=== PATIENT | female | born 1990 | race Caucasian/White ===

== ENCOUNTER → 2017-07-29 | Outpatient (CLI) | payer BC ==
--- NOTE | 2017-07-29 14:32 | Diagnostic Imaging Report ---
PROCEDURE:BIOPSY THYROID FNA COMPARISON:Thyroid ultrasound 07/13/2017 from outside hospital. INDICATIONS:Thyroid nodule. FINDINGS: Focused sonographic evaluation of the left neck demonstrated a nodule in the interpolar region of the left thyroid lobe with solid and cystic components. Small mural nodule was identified. A safe approach was determined. 1% lidocaine was infused into the subcutaneous tissues for local anesthesia. Utilizing direct sonographic guidance, fine needle aspiration biopsy samples x5 were obtained with 25 gauge needles. An additional pass was performed to aspirate all of the remaining fluid within the nodule. The specimens were given to pathology, who was at the bedside. The pathologist determined the specimens to be of proper cellularity for diagnosis. Upon completion of the procedure, no hematoma was visualized. A sterile dressing was applied. The patient tolerated the procedure well. There were no immediate complications. The patient was transferred to the post procedure area in stable unchanged condition for monitoring. The patient tolerated the procedure well, and there were no immediate post-procedural complications. CONCLUSION: Successful fine needle aspiration biopsy sample of the left thyroid lobe nodule utilizing ultrasound guidance. Dictated by: Howard Conley M.D. on 07/29/2017 at 14:32 Electronically approved by: Howard Conley M.D. on 07/29/2017 at 14:32
== END ==
LOC: US 12:27
PROVIDERS: ATTEND Family Medicine
DX: E04.1 Nontoxic single thyroid nodule (principal)
CPT/HCPCS: 10022; 76942; 88172; 88173; 88305